=== PATIENT | female | born 1955 | race American Indian/Alaskan Native ===

== ENCOUNTER 2021-12-16 21:13 | Emergency (ER) | payer MEDICARE ==
[2021-12-16] MEDS ORDERED: IPRATROPIUM 0.02% NEBU 2.5 ML IH ONE ×2 (22:59→23:00)
[2021-12-16] MEDS ORDERED: ALBUTEROL 2.5 MG/3 ML NEBU IH ONE ×2 (22:59→23:00)
--- NOTE | 2021-12-16 23:57 | Emergency Department Report ---
ED Shortness of Breath HPI - General Chief Complaint: Dyspnea/Respdistress Stated Complaint: HENOK/SOB Time Seen by Provider: 12/16/21 23:29 Source: patient Mode of arrival: Stretcher Limitations: No Limitations - History of Present Illness Initial Comments: 66 yo F with h/o smoking and COPD who present with sob for the last 1 week and progressive getting worse. Dyspnea is associated with mild cough. No fever or chills reported. No other modifying or associated factors reported. MD Complaint: shortness of breath - Related Data Previous Rx's Medication Instructions Recorded Last Taken Type levoFLOXacin [Levaquin TAB] 500 mg PO QDAY 7 Days #7 tablet NS 12/17/21 Unknown Rx predniSONE [Deltasone] 20 mg PO QDAY 7 Days #7 tab NS 12/17/21 Unknown Rx Allergies Allergy/AdvReac Type Severity Reaction Status Date / Time No Known Allergies Allergy Unverified 12/16/21 22:58 ED Review of Systems ROS: Stated complaint: HENOK/SOB Other details as noted in HPI Comment: All other systems reviewed and negative Respiratory: cough, shortness of breath, wheezing ED Past Medical Hx - Past Medical History Previous Medical History?: Yes Hx Hypertension: Yes Hx COPD: Yes Additional medical history: Thyroid Disease - Surgical History Past Surgical History?: Yes Additional Surgical History: Brain Anuryesum. Thyroidectomy - Social History Smoking Status: Never Smoker Substance Use Type: None - Medications Home Medications: Home Medications Medication Instructions Recorded Confirmed Last Taken Type levoFLOXacin [Levaquin TAB] 500 mg PO QDAY 7 Days #7 tablet NS 12/17/21 Unknown Rx predniSONE [Deltasone] 20 mg PO QDAY 7 Days #7 tab NS 12/17/21 Unknown Rx ED Physical Exam - General Limitations: No Limitations General appearance: alert, in no apparent distress - Head Head exam: Present: normal inspection - Eye Eye exam: Present: normal appearance Pupils: Present: normal accommodation - ENT ENT exam: Present: normal exam, normal orophraynx, mucous membranes dry - Neck Neck exam: Present: normal inspection, full ROM. Absent: tenderness - Respiratory Respiratory exam: Present: respiratory distress, wheezes. Absent: accessory muscle use - Cardiovascular Cardiovascular Exam: Present: regular rate, normal rhythm, normal heart sounds - GI/Abdominal GI/Abdominal exam: Present: soft, normal bowel sounds. Absent: distended, tenderness - Extremities Exam Extremities exam: Present: normal capillary refill. Absent: pedal edema - Back Exam Back exam: Absent: tenderness - Neurological Exam Neurological exam: Present: alert, oriented X3 - Psychiatric Psychiatric exam: Present: normal affect - Skin Skin exam: Present: warm, dry ED Course Vital Signs 12/16/21 12/16/21 12/17/21 21:14 23:35 05:46 Temperature 98 F Pulse Rate 124 H 118 H Pulse Rate [ 122 H Bilateral Throughout] Respiratory 20 20 Rate Respiratory 23 Rate [Bilateral Throughout] Blood Pressure 142/92 Blood Pressure 118/56 [Left] O2 Sat by Pulse 100 99 Oximetry 12/17/21 05:47 Temperature Pulse Rate Pulse Rate [ Bilateral Throughout] Respiratory Rate Respiratory Rate [Bilateral Throughout] Blood Pressure Blood Pressure [Left] O2 Sat by Pulse 99 Oximetry ED Medical Decision Making - Lab Data Result diagrams: 12/17/21 00:47 12/17/21 00:47 - Medical Decision Making Here with shortness of breath--among differential diagnosis could be but not limited to acute exacerbation of COPD, myocardiac infarction, pulmonary emboli sm, acute exacerbation of asthma, pneumothorax, pneumonia or Viral or Bacterial Upper/Lower respiratory tract infection or other systemic infection.--To rule out the above will go ahead and order EKG, cardiac enzyme including troponin, BNP, CKMB, chest x-ray, CBC, CMP, UA and or D-dimer. In the meantime we will go ahead continue to monitor and treat with DuoNeb, 125 mg of Solu-Medrol, magnesium sulfate 2 g IV, and will make a case for antibiotics Levaquin considering likely cause to be acute COPD exacerbation and continue to monitor the patient. Noted with unremarkable labs except slightly elevated BUN/Cr with normal potassium this is likely dehydration-- pt encouraged to drink more fluid Will discharge home on levaquin and to continue current COPD medication with close follow up with her PCP -- Critical care attestation.: If time is entered above; I have spent that time in minutes in the direct care of this critically ill patient, excluding procedure time. ED Disposition Clinical Impression: COPD exacerbation Disposition: HOME / SELF CARE / HOMELESS Is pt being admited?: No Does the pt Need Aspirin: No Condition: Stable Instructions: Chronic Obstructive Pulmonary Disease (ED), Chronic Obstructive Pulmonary Disease Exacerbation, [id number] Additional Instructions: Take and complete your antibiotics for 7 days Call and schedule follow-up with your primary doctor in the next 3 to 5 days for progress Please do not hesitate to call or return to emergency if your symptoms worsen Prescriptions: predniSONE [Deltasone] 20 mg PO QDAY 7 Days #7 tab NS levoFLOXacin [Levaquin TAB] 500 mg PO QDAY 7 Days #7 tablet NS Referrals: CAILIN LU MD [Referring] - 3-5 Days Time of Disposition: 06:08
[2021-12-16] MEDS ORDERED: MAGNESIUM SULFATE 2 GM/50 ML BAG IV ONE (23:59)
[2021-12-17] MEDS ORDERED: methylPREDNISolone Sod Succinate 125 MG/2 ML INJ IV ONE
--- NOTE | 2021-12-17 01:25 | XRay Report ---
CHEST 1 VIEW INDICATION / CLINICAL INFORMATION: Dyspnea. COMPARISON: None available. FINDINGS: SUPPORT DEVICES: None. HEART / MEDIASTINUM: Heart size is within normal limits. Mediastinal contour demonstrates no signific ant abnormality. LUNGS / PLEURA: Diffuse coarsening of interstitial markings is noted bilaterally with more focal stra nding within the cardiophrenic angle. Reflect bilateral lower lobe atelectatic changes or scarring. BONES: No significant osseous abnormality. ADDITIONAL FINDINGS: No significant additional findings. IMPRESSION: 1. The pattern of interstitial stranding may in part be chronic. Mild interstitial pulmonary edema no t excluded. Signer Name: Jacques Booker II, MD Signed: 12/17/2021 1:21 AM Workstation Name: [id number]
[2021-12-17 01:31] LABS: Alanine Aminotransferase 30 units/L (7-56); Albumin 3.8 g/dL (3.9-5); BUN/Creatinine Ratio 25; Blood Urea Nitrogen 48 mg/dL (7-17); Calcium 9.3 mg/dL (8.4-10.2); Hemolysis Index 2
[2021-12-17 01:34] LABS: Basophils % (Auto) 0.6 % (0.0-1.8); Eosinophils # (Auto) 0.2 K/mm3 (0.0-0.4); Eosinophils % (Auto) 3.8 % (0.0-4.3); Hemoglobin 11.4 gm/dl (10.1-14.3); Lymphocytes # (Auto) 0.9 K/mm3 (1.2-5.4); Lymphocytes % (Auto) 14.5 % (13.4-35.0); Mean Corpuscular HGB Conc 34 % (30-34); Mean Corpuscular Volume 94 fl (79-97); Monocytes # (Auto) 0.7 K/mm3 (0.0-0.8); Monocytes % (Auto) 11.6 % (0.0-7.3); Platelet Count 203 K/mm3 (140-440); Red Blood Count 3.62 M/mm3 (3.65-5.03); Red Cell Distribution Width 13.9 % (13.2-15.2)
[2021-12-17 01:46] LABS: INR 0.87 (0.87-1.13); Partial Thromboplastin Time 28.9 Sec. (24.2-36.6)
[2021-12-17 03:28] LABS: Amphetamine Screen,Urine PRESUMPTIVE NEGATIVE; Benzodiazepines Screen,Urine PRESUMPTIVE NEGATIVE; Cannabinoid Screen,Urine PRESUMPTIVE POSITIVE; Cocaine Screen,Urine PRESUMPTIVE NEGATIVE; Methadone Screen,Urine PRESUMPTIVE NEGATIVE; Opiate Screen,Urine PRESUMPTIVE NEGATIVE
[2021-12-17 05:47] VITALS: BP 118/56
--- NOTE | 2021-12-19 09:58 | Electrocardiograph Report ---
[facility] Test Date: 2021-12-16 Test Time: 23:02:14 Pat Name: FABIO DUARTE Department: Room: Gender: F Microelectronics Engineer: : [id number] Requested By: GUY HENSLEY Order Number: [id number] Reading MD: Cruz Messer Measurements Intervals Irwin Rate: 117 P: 78 WV: 113 QRS: 75 QRSD: 81 T: 75 QT: 306 QTc: 428 Interpretive Statements Sinus tachycardia with irregular rate No previous ECG available for comparison Electronically Signed On 12-19-2021 9:57:42 EDT by Cruz Messer
== END 2021-12-17 06:30 | disposition home or self-care (01) ==
LOC: EDBD 21:13 → ED 21:13
DX: J44.1 Chronic obstructive pulmonary disease with (acute) exacerbation (principal); I10 Essential (primary) hypertension; Z79.899 Other long term (current) drug therapy
CPT/HCPCS: 71045; 94640; 96365; 96367; 96375; 99284; J1956; J2930; J3475; 36415; 80053; 80307; 84484; 85025; 85379; 85610; 85730; 94644